=== PATIENT | female | born 1975 | race Caucasian/White ===

== ENCOUNTER 2024-05-09 15:04 | Emergency (ER) | payer OTHER ==
[~2024-05-09] VITALS: Ht 170.2 cm; Wt 84.7 kg
[2024-05-09] MEDS ORDERED: ATIVAN0.5 MG PO (16:08)
[2024-05-09] MEDS ORDERED: PRAVASTATIN SOD20 MG PO (16:08)
[2024-05-09] MEDS ORDERED: BISOPROLOL FUMA10 MG PO (16:08)
[2024-05-09] MEDS ORDERED: SEROQUEL50 MG PO (16:08)
[2024-05-09] MEDS ORDERED: OMEPRAZOLE20 MG PO (16:08)
[2024-05-09] MEDS ORDERED: METFORMIN HCL500 MG PO (16:09)
[2024-05-09] MEDS ORDERED: NEURONTIN300 MG PO ×2 (16:09→16:28)
[2024-05-09] MEDS ORDERED: BACTRIM DS TAB1 EACH PO (16:28)
[2024-05-09] MEDS ORDERED: TRIAMCINOLONE A15 G3 TOP (16:28)
[2024-05-09] MEDS ORDERED: TRIMETHOPRIM/SULFAMETHOXAZOLE 1 EA TAB PO ONE (16:30)
[2024-05-09 16:35] VITALS: BP 153/83
== END 2024-05-09 16:40 | disposition home or self-care (01) ==
LOC: ED 15:04
DX: L03.115 Cellulitis of right lower limb (principal); I10 Essential (primary) hypertension; E11.9 Type 2 diabetes mellitus without complications; E78.5 Hyperlipidemia, unspecified; G35 Multiple sclerosis; Z88.2 Allergy status to sulfonamides; Z88.8 Allergy status to other drugs, medicaments and biological substances; Z79.84 Long term (current) use of oral hypoglycemic drugs; Z79.899 Other long term (current) drug therapy
CPT/HCPCS: 99282; A9270

== ENCOUNTER 2024-05-12 08:46 | Emergency (ER) | payer OTHER ==
[~2024-05-12] VITALS: Ht 170.2 cm; Wt 96.8 kg
[~2024-05-12 08:46] MED LIST: ATIVAN0.5 MG PO; BACTRIM DS TAB1 EACH PO; BISOPROLOL FUMA10 MG PO; METFORMIN HCL500 MG PO; NEURONTIN300 MG PO; OMEPRAZOLE20 MG PO; PRAVASTATIN SOD20 MG PO; SEROQUEL50 MG PO; TRIAMCINOLONE A15 G3 TOP
--- OUTSIDE RECORDS SUMMARY | 2024-05-12 08:47 | XMS ---
PreManage Notification: SOLEDAD ORTEGA Security Communication Instructor Events No recent Security Events currently on file CRITERIA MET - [facility] - 2 Visits in 30 Days CARE PROVIDERS -, [facility] Dentist: Police Aide Current [place] PHONE: [phone] OZZIE SALCEDO [facility] Current PHONE: [phone] Agatha has no Care Guidelines for this patient. E.DMarcos VISIT COUNT (12 MO.) [address] [facility] [address] TOTAL 5 NOTE: Visits indicate total known visits. ED/UCC VISIT TRACKING (12 MO.) 05/12/2024 08:46 [facility] [place] TYPE: Emergency COMPLAINT: - RASH 05/09/2024 15:05 [facility] [place] TYPE: Emergency COMPLAINT: - FOOT PAIN DIAGNOSES: - Allergy status to other drugs, medicaments and biological substances - Allergy status to sulfonamides - Cellulitis of right lower limb - Essential (primary) hypertension - Hyperlipidemia, unspecified - long term care administrator (current) use of oral hypoglycemic drugs - Multiple sclerosis - Other shelter (current) drug therapy - Rash and other nonspecific skin eruption - Type 2 diabetes mellitus without complications 03/04/2024 06:28 [facility] TYPE: Emergency COMPLAINT: - Neck Pain DIAGNOSES: - Other muscle spasm - Neck Pain 02/10/2024 05:58 [facility] TYPE: Emergency COMPLAINT: - Neck pain DIAGNOSES: - Cervicalgia - Neck pain 05/31/2023 05:20 [facility] TYPE: Emergency COMPLAINT: - chest pain DIAGNOSES: - Chest pain, unspecified - chest pain - Cough - Diarrhea - Nausea - Vomiting INPATIENT VISIT TRACKING (12 MO.) No inpatient visits to display in this time frame [id number]
[2024-05-12] MEDS ORDERED: CEPHALEXIN500 MG PO (09:42)
[2024-05-12] MEDS ORDERED: CLOTRIMAZOLE-BE15 GM TOP (09:42)
[2024-05-12 09:48] VITALS: BP 145/75
== END 2024-05-12 09:48 | disposition home or self-care (01) ==
LOC: ED 08:46
DX: L21.9 Seborrheic dermatitis, unspecified (principal); L27.0 Generalized skin eruption due to drugs and medicaments taken internally; T36.8X5A Adverse effect of other systemic antibiotics, initial encounter; E11.9 Type 2 diabetes mellitus without complications; I10 Essential (primary) hypertension; E78.5 Hyperlipidemia, unspecified; K21.9 Gastro-esophageal reflux disease without esophagitis; H54.8 Legal blindness, as defined in USA; G35 Multiple sclerosis; Z88.2 Allergy status to sulfonamides; Z88.8 Allergy status to other drugs, medicaments and biological substances; Z79.84 Long term (current) use of oral hypoglycemic drugs; Z79.899 Other long term (current) drug therapy
CPT/HCPCS: 99283

== ENCOUNTER 2024-05-17 10:43 | Emergency (ER) | payer OTHER ==
[~2024-05-17] VITALS: Ht 170.2 cm; Wt 89.0 kg
[~2024-05-17 10:43] MED LIST changes: +CEPHALEXIN500 MG PO; +CLOTRIMAZOLE-BE15 GM TOP
--- OUTSIDE RECORDS SUMMARY | 2024-05-17 10:44 | XMS ---
PreManage Notification: SOLEDAD ORTEGA Security Senior Wind Energy Consultant Events No recent Security Events currently on file CRITERIA MET - [facility] - 2 Visits in 30 Days CARE PROVIDERS -, [facility] Dentist: Resort Keeper Current [place] PHONE: [phone] OZZIE SALCEDO [facility] Current PHONE: [phone] Agatha has no Care Guidelines for this patient. E.Bruce VISIT COUNT (12 MO.) [address] [place] [address] [facility] Sharif[facility] TOTAL 6 NOTE: Visits indicate total known visits. ED/UCC VISIT TRACKING (12 MO.) 05/17/2024 10:44 [facility] [place] TYPE: Emergency COMPLAINT: - DIFFICULTY BREATHING 05/12/2024 08:46 [facility] [place] TYPE: Emergency COMPLAINT: - RASH DIAGNOSES: - Adverse effect of other systemic antibiotics, initial encounter - Allergy status to other drugs, medicaments and biological substances - Allergy status to sulfonamides - Essential (primary) hypertension - Gastro-esophageal reflux disease without esophagitis - Generalized skin eruption due to drugs and medicaments taken internally - Hyperlipidemia, unspecified - Legal blindness, as defined in [place] - penitentiary (current) use of oral hypoglycemic drugs - Multiple sclerosis - Other intermediate (current) drug therapy - Rash and other nonspecific skin eruption - Seborrheic dermatitis, unspecified - Type 2 diabetes mellitus without complications 05/09/2024 15:05 [facility] [place] TYPE: Emergency COMPLAINT: - FOOT PAIN DIAGNOSES: - Allergy status to other drugs, medicaments and biological substances - Allergy status to sulfonamides - Cellulitis of right lower limb - Essential (primary) hypertension - Hyperlipidemia, unspecified - intermediate accountant (current) use of oral hypoglycemic drugs - Multiple sclerosis - Other intermediate (current) drug therapy - Rash and other nonspecific skin eruption - Type 2 diabetes mellitus without complications 03/04/2024 06:28 [facility] TYPE: Emergency COMPLAINT: - Neck Pain DIAGNOSES: - Other muscle spasm - Neck Pain 02/10/2024 05:58 [facility] TYPE: Emergency COMPLAINT: - Neck pain DIAGNOSES: - Cervicalgia - Neck pain 05/31/2023 05:20 [facility] [place] TYPE: Emergency COMPLAINT: - chest pain DIAGNOSES: - Chest pain, unspecified - chest pain - Cough - Diarrhea - Nausea - Vomiting INPATIENT VISIT TRACKING (12 MO.) No inpatient visits to display in this time frame [id number]
[2024-05-17] MEDS ORDERED: predniSONE 20 MG TAB PO ONE (11:15)
[2024-05-17] MEDS ORDERED: ALBUTEROL/IPRATROPIUM 3 ML NEB INH ONE (11:15)
[2024-05-17] MEDS ORDERED: PREDNISONE20 MG PO (12:11)
[2024-05-17 12:20] VITALS: BP 147/64
== END 2024-05-17 12:20 | disposition home or self-care (01) ==
LOC: ED 10:43
DX: R21 Rash and other nonspecific skin eruption (principal); R49.0 Dysphonia; L29.9 Pruritus, unspecified; F17.200 Nicotine dependence, unspecified, uncomplicated; E11.9 Type 2 diabetes mellitus without complications; G35 Multiple sclerosis; I10 Essential (primary) hypertension; E78.5 Hyperlipidemia, unspecified; K21.9 Gastro-esophageal reflux disease without esophagitis; H54.8 Legal blindness, as defined in USA; Z88.2 Allergy status to sulfonamides; Z88.8 Allergy status to other drugs, medicaments and biological substances; Z79.84 Long term (current) use of oral hypoglycemic drugs; Z79.899 Other long term (current) drug therapy
CPT/HCPCS: 94640; 99283; J7512

== ENCOUNTER 2024-07-04 08:16 | Emergency (ER) | payer OTHER ==
[~2024-07-04] VITALS: Ht 170.2 cm; Wt 89.4 kg
[~2024-07-04 08:16] MED LIST changes: +LISINOPRIL20 MG PO; +PREDNISONE20 MG PO
--- OUTSIDE RECORDS SUMMARY | 2024-07-04 08:23 | XMS ---
PreManage Notification: SOLEDAD ORTEGA Security Molder Setter Events No recent Security Events currently on file CRITERIA MET - 6 ED Visits in 6 Months - - 2 Visits in 30 Days CARE PROVIDERS -, [facility] Dentist: Professor Of Communication Arts [facility] PHONE: [phone] [facility] PRIMARY Clinic/Center: Primary Care [facility] PHONE: [phone] Agatha has no Care Guidelines for this patient. EAngel VISIT COUNT (12 MO.) [address] [place] [address] Ingrid Sharif-Isrrael TOTAL 7 NOTE: Visits indicate total known visits. ED/UCC VISIT TRACKING (12 MO.) 07/04/2024 08:17 [facility] [place] TYPE: Emergency COMPLAINT: - RT LEG PAIN 07/03/2024 13:45 [facility] [place] TYPE: Emergency COMPLAINT: - RT LEG PAIN 05/17/2024 10:44 [facility] [place] TYPE: Emergency COMPLAINT: - DIFFICULTY BREATHING DIAGNOSES: - Allergy status to other drugs, medicaments and biological substances - Allergy status to sulfonamides - Dysphonia - Essential (primary) hypertension - Gastro-esophageal reflux disease without esophagitis - Hyperlipidemia, unspecified - Legal blindness, as defined in [place] - medical terminologist (current) use of oral hypoglycemic drugs - Multiple sclerosis - Nicotine dependence, unspecified, uncomplicated - Other detention (current) drug therapy - Pruritus, unspecified - Rash and other nonspecific skin eruption - Type 2 diabetes mellitus without complications 05/12/2024 08:[address] [facility] [address] [facility] [place] TYPE: Emergency COMPLAINT: - RASH DIAGNOSES: - Adverse effect of other systemic antibiotics, initial encounter - Allergy status to other drugs, medicaments and biological substances - Allergy status to sulfonamides - Essential (primary) hypertension - Gastro-esophageal reflux disease without esophagitis - Generalized skin eruption due to drugs and medicaments taken internally - Hyperlipidemia, unspecified - Legal blindness, as defined in [place] - assisted (current) use of oral hypoglycemic drugs - Multiple sclerosis - Other termite treater (current) drug therapy - Rash and other nonspecific skin eruption - Seborrheic dermatitis, unspecified - Type 2 diabetes mellitus without complications 05/09/2024 15:[address] [facility] [address] [facility] [place] TYPE: Emergency COMPLAINT: - FOOT PAIN DIAGNOSES: - Allergy status to other drugs, medicaments and biological substances - Allergy status to sulfonamides - Cellulitis of right lower limb - Essential (primary) hypertension - Hyperlipidemia, unspecified - medical terminologist (current) use of oral hypoglycemic drugs - Multiple sclerosis - Other detention (current) drug therapy - Rash and other nonspecific skin eruption - Type 2 diabetes mellitus without complications 03/04/2024 06:28 [facility] TYPE: Emergency COMPLAINT: - Neck Pain DIAGNOSES: - Other muscle spasm - Neck Pain 02/10/2024 05:58 [facility] [place] TYPE: Emergency COMPLAINT: - Neck pain DIAGNOSES: - Cervicalgia - Neck pain INPATIENT VISIT TRACKING (12 MO.) No inpatient visits to display in this time frame [id number]
[2024-07-04] MEDS ORDERED: LISINOPRIL10 MG PO (08:33)
[2024-07-04] MEDS ORDERED: CEPHALEXIN MONOHYDRATE 500 MG CAP PO ONE (08:45)
[2024-07-04] MEDS ORDERED: OXYCODONE/APAP 5/325 TAB PO ONE (08:45)
[2024-07-04] MEDS ORDERED: DOXYCYCLINE HYCLATE 100 MG CAP PO ONE (08:45)
[2024-07-04] MEDS ORDERED: CEPHALEXIN500 MG PO (10:57)
[2024-07-04] MEDS ORDERED: DOXYCYCLINE HY100 MG PO (10:57)
[2024-07-04] MEDS ORDERED: PERCOCET 5-3251 EACH PO (10:59)
[2024-07-04 11:12] VITALS: BP 121/77
== END 2024-07-04 11:12 | disposition home or self-care (01) ==
LOC: ED 08:16
DX: L03.115 Cellulitis of right lower limb (principal); E11.9 Type 2 diabetes mellitus without complications; G35 Multiple sclerosis; I10 Essential (primary) hypertension; Z88.2 Allergy status to sulfonamides; Z88.8 Allergy status to other drugs, medicaments and biological substances; Z79.899 Other long term (current) drug therapy; Z79.84 Long term (current) use of oral hypoglycemic drugs
CPT/HCPCS: 93971; 99283-25; A9270

== ENCOUNTER 2024-08-03 11:23 | Emergency (ER) | payer OTHER ==
[~2024-08-03] VITALS: Ht 170.2 cm; Wt 96.6 kg
[~2024-08-03 11:23] MED LIST changes: +DOXYCYCLINE HY100 MG PO; +LISINOPRIL10 MG PO; +PERCOCET 5-3251 EACH PO
--- OUTSIDE RECORDS SUMMARY | 2024-08-03 11:30 | XMS ---
PreManage Notification: SOLEDAD ORTEGA Security Senior Linux Unix Administrator Events No recent Security Events currently on file CRITERIA MET - 6 ED Visits in 6 Months - Group Notification - [facility] - 2 Visits in 30 Days CARE PROVIDERS -, [facility] Dentist: Outbound Sales Executive [facility] PHONE: [phone] [facility] PRIMARY Clinic/Center: Primary Care [facility] PHONE: [phone] Agatha has no Care Guidelines for this patient. E.D. VISIT COUNT (12 MO.) [address] [address] Ingrid Sharif-Isrrael TOTAL 8 NOTE: Visits indicate total known visits. ED/UCC VISIT TRACKING (12 MO.) 08/03/2024 11:24 [facility] [place] TYPE: Emergency COMPLAINT: - RASH 07/04/2024 08:17 [facility] [place] TYPE: Emergency COMPLAINT: - RT LEG PAIN DIAGNOSES: - Allergy status to other drugs, medicaments and biological substances - Allergy status to sulfonamides - Cellulitis of right lower limb - Essential (primary) hypertension - intermediate (current) use of oral hypoglycemic drugs - Multiple sclerosis - Other long-term (current) drug therapy - Pain in right foot - Type 2 diabetes mellitus without complications 07/03/2024 13:45 [facility] [place] TYPE: Emergency COMPLAINT: - RT LEG PAIN 05/17/2024 10:44 [facility] [place] TYPE: Emergency COMPLAINT: - DIFFICULTY BREATHING DIAGNOSES: - Allergy status to other drugs, medicaments and biological substances - Allergy status to sulfonamides - Dysphonia - Essential (primary) hypertension - Gastro-esophageal reflux disease without esophagitis - Hyperlipidemia, unspecified - Legal blindness, as defined in [place] - termite control representative (current) use of oral hypoglycemic drugs - Multiple sclerosis - Nicotine dependence, unspecified, uncomplicated - Other terminal worker (current) drug therapy - Pruritus, unspecified - Rash and other nonspecific skin eruption - Type 2 diabetes mellitus without complications 05/12/2024 08:46 [facility] [place] TYPE: Emergency [...] Legal blindness, as defined in [place] - intermediate (current) use of oral hypoglycemic drugs - Multiple sclerosis - Other long-term (current) drug therapy - Rash and other nonspecific skin eruption - Seborrheic dermatitis, unspecified - Type 2 diabetes mellitus without complications 05/09/2024 15:05 [facility] TYPE: Emergency COMPLAINT: - FOOT PAIN DIAGNOSES: - Allergy status to other drugs, medicaments and biological substances - Allergy status to sulfonamides - Cellulitis of right lower limb - Essential (primary) hypertension - Hyperlipidemia, unspecified - termite control representative (current) use of oral hypoglycemic drugs - Multiple sclerosis - Other long-term (current) drug therapy - Rash and other [...] visits to display in this time frame [id number]
[2024-08-03] MEDS ORDERED: TRULICITY0.75 MG/0. (12:10)
[2024-08-03] MEDS ORDERED: predniSONE 20 MG TAB PO ONE (12:30)
[2024-08-03] MEDS ORDERED: diphenhydrAMINE HCL 50 MG CAP PO ONE (12:30)
[2024-08-03] MEDS ORDERED: FAMOTIDINE 20 MG TAB PO ONE (12:30)
[2024-08-03 13:05] VITALS: BP 149/89
== END 2024-08-03 13:07 | disposition home or self-care (01) ==
LOC: ED 11:23
DX: L50.9 Urticaria, unspecified (principal); E11.9 Type 2 diabetes mellitus without complications; E78.5 Hyperlipidemia, unspecified; I10 Essential (primary) hypertension; K21.9 Gastro-esophageal reflux disease without esophagitis; G47.00 Insomnia, unspecified; H54.8 Legal blindness, as defined in USA; Z88.2 Allergy status to sulfonamides; Z88.8 Allergy status to other drugs, medicaments and biological substances; Z79.84 Long term (current) use of oral hypoglycemic drugs; Z79.85 Long-term (current) use of injectable non-insulin antidiabetic drugs; Z79.899 Other long term (current) drug therapy
CPT/HCPCS: 99282; J7512; Q0163

== ENCOUNTER 2024-09-22 12:10 | Emergency (ER) | payer OTHER ==
[~2024-09-22] VITALS: Ht 170.2 cm; Wt 96.6 kg
[~2024-09-22 12:10] MED LIST changes: +TRULICITY0.75 MG/0.
--- OUTSIDE RECORDS SUMMARY | 2024-09-22 12:17 | XMS ---
PreManage Notification: SOLEDAD ORTEGA Security Take Away Worker Events No recent Security Events currently on file CRITERIA MET - 6 ED Visits in 6 Months - Group Notification CARE PROVIDERS [facility]Center: Primary Care [facility] PHONE: [phone] Agatha has no Care Guidelines for this patient. E.Bruce VISIT COUNT (12 MO.) 7 [facility] TOTAL 9 NOTE: Visits indicate total known visits. ED/UCC VISIT TRACKING (12 MO.) 09/22/2024 12:11 [facility] [place] TYPE: Emergency COMPLAINT: - RT FOOT PAIN 08/03/2024 11:24 [facility] [place] TYPE: Emergency COMPLAINT: - RASH DIAGNOSES: - Allergy status to other drugs, medicaments and biological substances - Allergy status to sulfonamides - Essential (primary) hypertension - Gastro-esophageal reflux disease without esophagitis - Hyperlipidemia, unspecified - Insomnia, unspecified - Legal blindness, as defined in [place] - manager long term care (current) use of oral hypoglycemic drugs - Long-term (current) use of injectable non-insulin antidiabetic drugs - Other nursing home (current) drug therapy - Type 2 diabetes mellitus without complications - Urticaria, unspecified 07/04/2024 08:17 [facility] [place] TYPE: Emergency COMPLAINT: - RT LEG PAIN DIAGNOSES: - Allergy status to other drugs, medicaments and biological substances - Allergy status to sulfonamides - Cellulitis of right lower limb - Essential (primary) hypertension - manager long term care (current) use of oral hypoglycemic drugs - Multiple sclerosis - Other laborer marine terminal (current) drug therapy - Pain in right [...] Legal blindness, as defined in [place] - halfway (current) use of oral hypoglycemic drugs - Multiple sclerosis - Nicotine dependence, unspecified, uncomplicated - Other laborer marine terminal (current) drug therapy - Pruritus, unspecified - [...] Legal blindness, as defined in [place] - halfway (current) use of oral hypoglycemic drugs - Multiple sclerosis - Other nursing home (current) drug therapy - Rash and other nonspecific skin eruption - Seborrheic dermatitis, unspecified - Type 2 diabetes mellitus without complications 05/09/2024 15:05 [facility] TYPE: Emergency COMPLAINT: - FOOT PAIN DIAGNOSES: - Allergy status to other drugs, medicaments and biological substances - Allergy status to sulfonamides - Cellulitis of right lower limb - Essential (primary) hypertension - Hyperlipidemia, unspecified - halfway (current) use of oral hypoglycemic drugs - Multiple sclerosis - Other laborer marine terminal (current) drug therapy - Rash and other [...] visits to display in this time frame [email or web address]
[2024-09-22] MEDS ORDERED: TERBINAFINE HC250 MG PO (12:38)
[2024-09-22] MEDS ORDERED: predniSONE 20 MG TAB PO ONE (13:00)
[2024-09-22] MEDS ORDERED: HYDROCODONE/ACETA 7.5/325 TAB PO ONE (13:00)
[2024-09-22] MEDS ORDERED: INSULIN GLARGINE-YFGN 100 UNIT/ML ML SUB-Q ONE (13:15)
[2024-09-22] MEDS ORDERED: PREDNISONE20 MG PO (13:21)
[2024-09-22] MEDS ORDERED: HYDROCODON-ACE1 EA10 PO (13:21)
[2024-09-22] MEDS ORDERED: LANTUS100 UNITS/ SUB-Q (13:21)
[2024-09-22 13:35] VITALS: BP 131/80
== END 2024-09-22 13:35 | disposition home or self-care (01) ==
LOC: ED 12:10
DX: L30.9 Dermatitis, unspecified (principal); E78.5 Hyperlipidemia, unspecified; I10 Essential (primary) hypertension; K21.9 Gastro-esophageal reflux disease without esophagitis; E11.9 Type 2 diabetes mellitus without complications; G47.00 Insomnia, unspecified; Z79.84 Long term (current) use of oral hypoglycemic drugs; Z79.899 Other long term (current) drug therapy; Z88.2 Allergy status to sulfonamides; Z88.8 Allergy status to other drugs, medicaments and biological substances
CPT/HCPCS: 99283; A9270; J7512

== ENCOUNTER 2024-12-30 15:43 | Emergency (ER) | payer OTHER ==
[~2024-12-30] VITALS: Ht 170.2 cm; Wt 90.6 kg
[~2024-12-30 15:43] MED LIST changes: +HYDROCODON-ACE1 EA10 PO; +LANTUS100 UNITS/ SUB-Q; +TERBINAFINE HC250 MG PO
--- OUTSIDE RECORDS SUMMARY | 2024-12-30 15:50 | XMS ---
PreManage Notification: SOLEDAD ORTEGA Security Gas Booster Engineer Events No recent Security Events currently on file CRITERIA MET - Group Notification CARE PROVIDERS [facility]Center: Primary Care [facility] PHONE: [phone] Agatha has no Care Guidelines for this patient. E.Bruce VISIT COUNT (12 MO.) 8 [facility] TOTAL 10 NOTE: Visits indicate total known visits. ED/UCC VISIT TRACKING (12 MO.) 12/30/2024 15:44 [facility] [place] TYPE: Emergency COMPLAINT: - RT FOOT PAIN 09/22/2024 12:11 [facility] [place] TYPE: Emergency COMPLAINT: - SKIN ISSUE DIAGNOSES: - Allergy status to other drugs, medicaments and biological substances - Allergy status to sulfonamides - Dermatitis, unspecified - Essential (primary) hypertension - Gastro-esophageal reflux disease without esophagitis - Hyperlipidemia, unspecified - Insomnia, unspecified - 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 - Other director of managed services (current) drug therapy - Pain in right foot - Type 2 diabetes mellitus without complications 08/03/2024 11:24 [facility] [place] TYPE: Emergency COMPLAINT: - RASH DIAGNOSES: - Allergy status to other drugs, medicaments and biological substances - Allergy status to sulfonamides - Essential (primary) hypertension - Gastro-esophageal reflux disease without esophagitis - Hyperlipidemia, unspecified - Insomnia, unspecified - Legal blindness, as defined in [place] - 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 - Long-term (current) use of injectable non-insulin antidiabetic drugs - Other prison (current) drug therapy - Type 2 diabetes mellitus without complications - Urticaria, unspecified 07/04/2024 08:17 [facility] [place] TYPE: Emergency COMPLAINT: - RT LEG PAIN DIAGNOSES: - Allergy status to other drugs, medicaments and biological substances - Allergy status to sulfonamides - Cellulitis of right lower limb - Essential (primary) hypertension - 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 - Multiple sclerosis - Other prison (current) drug therapy - Pain in right [...] Legal blindness, as defined in [place] - [facility] (current) use of oral hypoglycemic drugs - Multiple sclerosis - Nicotine dependence, unspecified, uncomplicated - Other director of managed services (current) drug therapy - Pruritus, unspecified - [...] Legal blindness, as defined in [place] - 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 - Multiple sclerosis - Other prison (current) drug therapy - Rash and other nonspecific skin eruption - Seborrheic dermatitis, unspecified - Type 2 diabetes mellitus without complications 05/09/2024 15:05 [facility] [place] TYPE: Emergency COMPLAINT: - FOOT PAIN DIAGNOSES: - Allergy status to other drugs, medicaments and biological substances - Allergy status to sulfonamides - Cellulitis of right lower limb - Essential (primary) hypertension - Hyperlipidemia, unspecified - 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 - Multiple sclerosis - Other prison (current) drug therapy - Rash and other [...] visits to display in this time frame [email or web address]
[2024-12-30] MEDS ORDERED: QUETIAPINE FUM100 MG PO (15:59)
[2024-12-30] MEDS ORDERED: LORAZEPAM0.5 MG PO (15:59)
[2024-12-30] MEDS ORDERED: METFORMIN HCL500 M1 PO (16:00)
[2024-12-30] MEDS ORDERED: FLUTICASONE-SA1 EAC3 INH (16:00)
[2024-12-30] MEDS ORDERED: GABAPENTIN300 MG PO (16:00)
[2024-12-30] MEDS ORDERED: KETOCONAZOLE15 GM TOP (16:34)
[2024-12-30 16:56] VITALS: BP 136/70
[2024-12-30] MEDS ORDERED: HYDROCODONE/ACETA 5/325 TAB PO ONE (17:00)
== END 2024-12-30 16:55 | disposition home or self-care (01) ==
LOC: ED 15:43
DX: B35.3 Tinea pedis (principal); E11.9 Type 2 diabetes mellitus without complications; E78.5 Hyperlipidemia, unspecified; I10 Essential (primary) hypertension; Z88.2 Allergy status to sulfonamides; Z88.8 Allergy status to other drugs, medicaments and biological substances; Z79.899 Other long term (current) drug therapy; Z87.81 Personal history of (healed) traumatic fracture
CPT/HCPCS: 99283

== ENCOUNTER 2025-03-13 06:15 | Day surgery (SDC) | payer OTHER ==
[~2025-03-13] VITALS: Ht 172.7 cm; Wt 91.0 kg
[~2025-03-13 06:15] MED LIST changes: +FLUTICASONE-SA1 EAC3 INH; +GABAPENTIN300 MG PO; +KETOCONAZOLE15 GM TOP; +LACTATED RINGER'S 1,000 ML IV SCH; +LORAZEPAM0.5 MG PO; +METFORMIN HCL500 M1 PO; +QUETIAPINE FUM100 MG PO
[2025-03-13 06:42] LABS: BASOPHILS 0.4 % (0.1-1.2); EOSINOPHILS 1.6 % (0.7-5.8); LYMPHOCYTES 23.2 % (19.3-51.7); MCH 27.4 PG (25.6-32.2); MCHC 33.0 g/dL (32.2-35.5); MCV 83.0 fL (79.4-94.8); MONOCYTES 4.4 % (4.7-12.5); NEUTROPHILS 70.1 % (34.0-71.1); RBC 4.46 M/uL (3.93-5.22)
[2025-03-13] MEDS ORDERED: LIDOCAINE HCL 1% 5 ML SDV INJ ONE (07:00)
[2025-03-13] MEDS ORDERED: IBLOOD GLUCOSE TEST STRIP 1 EA TEST VI PRN (07:00)
[2025-03-13 07:03] LABS: ALT (SGPT) 35.0 U/L (14-59); AST (SGOT) 12.0 U/L (15-37); GLOMERULAR FILTRATION RATE,EST 107.0 mL/min (>60); PROTEIN, TOTAL 7.1 g/dL (6.4-8.2); UREA NITROGEN 6.0 mg/dL (7-18)
[2025-03-13 07:06] VITALS: BP 126/87
--- NOTE | 2025-03-13 08:52 | NUR ---
VISITED DURING SPIRITUAL CARE ROUNDS. PT SUPPORTED BY IN ROOM. BOTH IN OVERALL GOOD SPIRITS. NO IMMEDIATE NEEDS. SUPERVISOR PLATING AND POINT ASSEMBLY PROVIDED SUPPORTIVE PRESENCE, HOSPITALITY, PRAYER. PT AND EXPRESSED GRATITUDE.
[2025-03-13] MEDS ORDERED: LIDOCAINE HCL 2% 5 ML SDV ONE (09:37)
--- NOTE | 2025-03-13 10:00 | NUR ---
03/13/25 1000 Mya Austin 0953: PT ARRIVES TO PACU AWAKE, BUT DROWSY. REPORT RECEIVED FROM COUNTER PROFESSIONAL AND SHUTTLE SPOTTER. TOMAS 0958: PT GIVEN WARM BLANKETS.
[2025-03-13 10:16] VITALS: BP 123/74
--- NOTE | 2025-03-13 18:50 | EKG ---
[facility] [address] [place], [place] [address] Signed Normal sinus rhythm Normal ECG No previous ECGs available Confirmed by Aide Aguilar DO ([id number]) on 03/13/2025 6:50:38 PM Electronically Signed By: AIDE AGUILAR DO 03/13/251849 PATIENT NAME: SOLEDAD ORTEGA Electrocardiogram DATE OF : 71 PHYSICIAN: AIDE AGUILAR DO REPORT #: [id number] REPORT IS CONFIDENTIAL AND NOT TO BE RELEASED WITHOUT AUTHORIZATION
--- NOTE | 2025-03-15 08:48 | OR ---
[facility] [address] [place], [place] [address] Signed DATE OF OPERATION: 03/13/2025 SURGEON: Tara Conner DO PREOPERATIVE DIAGNOSES: 1. Gastroesophageal reflux symptoms. 2. Colon cancer screening. POSTOPERATIVE DIAGNOSES: 1. Gastroesophageal reflux symptoms. 2. Colon cancer screening. 3. LA grade A esophagitis and gastritis. 4. Diverticulosis. 5. Polyps at 20 cm x3. PROCEDURES PERFORMED: 1. Esophagogastroduodenoscopy with biopsy. 2. Colonoscopy with polyp biopsy x3 at 20 cm. ANESTHESIA: IV sedation. ESTIMATED BLOOD LOSS: None. DRAINS: None. COMPLICATIONS: None. DESCRIPTION OF PROCEDURE: The patient was brought to the GI lab, placed in supine position. After induction of IV sedation, the patient was placed in left lateral position and padded to the satisfaction of anesthesia through preanesthetized oropharynx and a bite block. The Olympus video endoscope was introduced into the mouth directed through the length of the esophagus into the distal esophagus. LA grade A esophagitis was noted. No ulcerations were noted. No skip lesions were appreciated. The scope was brought back into the stomach and exploration was carried out. Some punctate gastritis was noted at the distal aspect of the antrum, biopsies were taken. Scope was advanced through the pylorus, first and Electronically Signed By: TARA CONNER DO 03/15/25 0848 PATIENT NAME: SHANNONSOLEDAD SANDHYA OPERATIVE REPORT DATE OF : 71 REPORT #: [id number] PHYSICIAN: TARA CONNER DO PCP: PRIYANKA PIMENTEL PA-C REPORT IS CONFIDENTIAL AND NOT TO BE RELEASED WITHOUT AUTHORIZATION [facility] [address] [place], [place] [address] Signed second portions of duodenum. No intrinsic or extrinsic masses were appreciated. The scope was brought back into the stomach. Remainder of the gastric body had some mild gastritis. No hiatal hernia was noted on retroflex position. The scope was placed in neutral position and the stomach was decompressed. Scope was withdrawn. Attention was then directed to the colonoscopy portion of the procedure, and Olympus video colonoscope was then introduced into the anus and then while under direct visualization and insufflation, the scope was then advanced through the rectosigmoid, sigmoid colon, descending colon, transverse colon, ascending colon into the cecum. Insufflation was maintained and exploration of the mucosal surface was then noted. The cecum and ascending colon were without lesions or ulceration. No intrinsic or extrinsic masses were noted. The scope was then brought back past the hepatic flexure into the transverse colon. No intrinsic or extrinsic masses, lesions, or ulcerations were noted. The scope was brought back into the splenic flexure and descending colon. . No lesions or ulcerations were noted. The scope was then brought back into the sigmoid colon. Some scattered diverticulosis was noted and at approximately 20 cm, 3 separate flat broad-based polyps were identified. Multiple biopsies of each 3 of the polyps were then performed utilizing a cold biopsy forceps and then passed off the field for pathologic review. Satisfactory hemostasis was maintained. The remainder of the sigmoid colon was unremarkable. Rectosigmoid was also unremarkable. No intrinsic or extrinsic masses were noted . Scope was withdrawn. The patient tolerated the procedure well, went to recovery room in satisfactory condition. DO CHRISTIANA Layton/KRISTEN /[id number] Copies: ~ Electronically Signed By: TARA CONNER DO 03/15/25 0848 PATIENT NAME: SOLEDAD ORTEGA OPERATIVE REPORT DATE OF : 71 REPORT #: [id number] PHYSICIAN: TARA CONNER DO PCP: PRIYANKA PIMENTEL PA-C REPORT IS CONFIDENTIAL AND NOT TO BE RELEASED WITHOUT AUTHORIZATION
== END 2025-03-13 10:25 | disposition home or self-care (01) ==
LOC: DS 06:15
PROVIDERS: Nurse Anesthetist, Certified Registered; ATTEND Surgery
PROC: 0DB68ZX Excision of Stomach, Via Natural or Artificial Opening Endoscopic, Diagnostic (ICD-10-PCS; principal; 2025-03-13 08:30)
PROC: 0DBN8ZX Excision of Sigmoid Colon, Via Natural or Artificial Opening Endoscopic, Diagnostic (ICD-10-PCS; 2025-03-13 08:30)
DX: K21.00 Gastro-esophageal reflux disease with esophagitis, without bleeding (principal); K92.1 Melena; K57.30 Diverticulosis of large intestine without perforation or abscess without bleeding; K63.5 Polyp of colon; K29.50 Unspecified chronic gastritis without bleeding; I10 Essential (primary) hypertension; E11.9 Type 2 diabetes mellitus without complications; E78.5 Hyperlipidemia, unspecified; G35 Multiple sclerosis; Z86.0100 Personal history of colon polyps, unspecified; Z79.84 Long term (current) use of oral hypoglycemic drugs; Z79.899 Other long term (current) drug therapy; Z88.2 Allergy status to sulfonamides; Z88.8 Allergy status to other drugs, medicaments and biological substances; Z87.19 Personal history of other diseases of the digestive system
CPT/HCPCS: 00813; 36415; 80053; 85025; 88305; 93005; 93010; J2003; J2704; J7121